=== PATIENT | female | born 1930 | race Caucasian/White ===

== ENCOUNTER → 2016-11-12 | Outpatient (CLI) | payer MEDICARE, BC ==
[2016-05-24 11:00] VITALS: BP 127/54
[~2016-11-12] MED LIST: APIX2.5T PO; ASPI-630 PO; ATOR10TA60 PO; CALC-157 PO; CEPH-264 PO; DILT120C80 PO; FAMO40TA4 PO; GLUC-142 PO; IPRA3AMP NEB; LUTE20CA4 PO; NAPR500T3 PO; POTA10CA PO; PRED-220 PO; SIMV20TA3 PO; TORS20TA2 PO
--- NOTE | 2016-11-12 16:21 | CARD ---
APPROVED REPORT EXAM: Two-dimensional and M-mode echocardiogram with Doppler and color Doppler. Other Information Quality : FairHR: 70bpm Rhythm : NSR INDICATION Aortic valve stenosis 2D DIMENSIONS RVDd2.9 (2.9-3.5cm)Left Atrium(2D)3.5 (1.6-4.0cm) IVSd1.0 (0.7-1.1cm)Aortic Root(2D)3.2 (2.0-3.7cm) LVDd4.5 (3.9-5.9cm)LVOT Diameter2.3 (1.8-2.4cm) PWd1.0 (0.7-1.1cm)LVDs3.1 (2.5-4.0cm) FS (%) 32.0 %SV55.8 ml LVEF(%)60.2 (>50%) Aortic Valve AoV Peak Román.357.4cm/sAoV VTI78.1cm AO Peak GR.51.1mmHgLVOT Peak Román.143.2cm/s LVOT VTI 30.60cmAO Mean GR.32mmHg LAKSHMI (VMAX)1.05mq7UIB (VTI)1.67cm2 Mitral Valve MV E Nnxsgigg075.4cm/sMV E Peak Gr.7mmHg MV DECEL [id number] A Tepztini398.6cm/s MV E Mean Gr.2mmHgE/A Ratio0.8 MV A [id number] Tricuspid Valve TR P. Akhaflpo830vh/sTR Peak Gr.31mmHg Pulmonary Vein S1 Hqllyass41.2cm/sD2 Azxydlov57.2cm/s LEFT VENTRICLE The left ventricle is normal size. There is normal left ventricular wall thickness. The left ventricu lar systolic function is normal. The Ejection Fraction is 65-70%. There is normal LV segmental wall m otion. Transmitral Doppler flow pattern is Grade I-abnormal relaxation pattern. RIGHT VENTRICLE The right ventricle is normal size. There is normal right ventricular wall thickness. The right ventr icular systolic function is normal. ATRIA The left atrium size is normal. The right atrium size is normal. The interatrial septum is intact wit h no evidence for an atrial septal defect or patent foramen ovale as noted on 2-D or Doppler imaging. AORTIC VALVE Doppler and Color Flow revealed mild aortic regurgitation. There is moderate valvular aortic stenosis . Calculated aortic valve area is 1.2 cm2 with maximum pressure gradient of 52 mmHg and mean pressure gradient of 32 mmHg. MITRAL VALVE Mitral annular calcification is mild. The mitral valve leaflets are thickened. There is no evidence o f mitral valve prolapse. There is no mitral valve stenosis. Doppler and Color Flow revealed no mitral valve regurgitation noted. TRICUSPID VALVE Doppler and Color Flow revealed mild tricuspid regurgitation. The pulmonary artery systolic pressure is estimated at 34 mmHg. There is mild pulmonary hypertension. PULMONIC VALVE Doppler and Color Flow revealed mild pulmonic valvular regurgitation. There is no pulmonic valvular s tenosis. GREAT VESSELS The aortic root is normal in size. The ascending aorta is normal in size. The pulmonary artery is nor mal. The IVC is normal in size and collapses >50% with inspiration. PERICARDIAL EFFUSION There is no evidence of significant pericardial effusion. Critical Notification Critical Value: No <Conclusion> The left ventricular systolic function is normal. The Ejection Fraction is 65-70%. There is normal LV segmental wall motion. Transmitral Doppler flow pattern is Grade I-abnormal relaxation pattern. Moderate valvular aortic stenosis with calculated aortic valve area is 1.2 cm2 and mean pressure grad ient of 32 mmHg. Mild tricuspid regurgitation. The pulmonary artery systolic pressure is estimated at 34 mmHg. There is no evidence of significant pericardial effusion.
== END | disposition home or self-care (01) ==
LOC: ECHO 12:34
PROVIDERS: ATTEND Internal Medicine Cardiovascular Disease
DX: I08.2 Rheumatic disorders of both aortic and tricuspid valves (principal); I37.1 Nonrheumatic pulmonary valve insufficiency; I27.2 Other secondary pulmonary hypertension
CPT/HCPCS: 93306

== ENCOUNTER → 2017-08-01 | Outpatient (CLI) | payer MEDICARE, BC ==
[2016-05-24 11:00] VITALS: BP 127/54
[~2017-08-01] MED LIST changes: -NAPR500T3 PO; +NAPR500T4 PO
[2017-08-01 08:44] LABS: CALCIUM 9.1 mg/dL (8.5-10.1); GFR 52.2; POTASSIUM 4.6 mmol/L (3.5-5.1)
== END | disposition home or self-care (01) ==
LOC: LAB 07:31
PROVIDERS: ATTEND Internal Medicine Cardiovascular Disease
DX: E78.2 Mixed hyperlipidemia (principal); I50.30 Unspecified diastolic (congestive) heart failure; E10.22 Type 1 diabetes mellitus with diabetic chronic kidney disease; N18.3 Chronic kidney disease, stage 3 (moderate); Z79.899 Other long term (current) drug therapy; Z87.891 Personal history of nicotine dependence
CPT/HCPCS: 36415; 80048; 80061